=== PATIENT | female | born 1985 | race Caucasian/White ===

== ENCOUNTER 2018-06-19 03:05 | Inpatient (IN) | payer OTHER ==
[2018-06-19 03:38] VITALS: BMI 26.1
[2018-06-19] MEDS ORDERED: Lidocaine 1% (PF) 30 ML VIAL SC PRN (04:55)
[2018-06-19] MEDS ORDERED: NS / Oxytocin 40 units/1000ml 1,000 ML IV PRN (04:55)
[2018-06-19] MEDS ORDERED: Methylergonovine 0.2 MG/ML VIAL IM PRN (04:55)
[2018-06-19] MEDS ORDERED: Ibuprofen 800 MG TAB PO PRN (04:55)
[2018-06-19] MEDS ORDERED: Acetaminophen 500 MG TAB PO PRN (04:55)
[2018-06-19] MEDS ORDERED: Diphenoxylate HCl/Atropine Tablet PO PRN ×2 (04:55)
[2018-06-19] MEDS ORDERED: HYDROcodone/Acetaminophen 5/325 mg Tablet PO PRN ×2 (04:55)
[2018-06-19] MEDS ORDERED: Misoprostol 200 MCG TAB PR PRN (04:55)
[2018-06-19] MEDS ORDERED: Promethazine HCl 25 MG/ML VIAL IM PRN ×2 (04:55→21:03)
[2018-06-19] MEDS ORDERED: Carboprost 250 MCG/ML AMP IM PRN (04:55)
[2018-06-19 07:00] LABS: Hemoglobin 12.5 g/dL (12.0-16.0); Mean Corpuscular HGB CONC 33.6 g/dL (32.0-36.0); Mean Corpuscular Hemoglobin 28.7 pg (27.0-31.0); Mean Corpuscular Volume 85.5 fL (78.0-98.0); Platelet Count 168 thou/uL (130-400); RBC Distribution Width 12.7 % (11.5-14.5); Red Blood Cell (RBC) Count 4.37 mill/uL (4.20-5.40); White Blood Cell (WBC) Count 6.9 thou/uL (4.8-10.8)
[2018-06-19 07:47] LABS: HBSAg Index 0.18 S/CO (0-0.99); Hep B Surf Ag Non-Reactive S/CO (NonReactive); Syphilis Antibody Nonreactive (Nonreactive); Syphilis Antibody Index 0.05 S/CO (<1.00 Non-Reactive)
[2018-06-19] MEDS: NS w/ Oxytocin 10 units 500 ML IV SCH (07:47)
[2018-06-19] MEDS: Lactated Ringer's 1,000 ML IV SCH ×2 (07:48→13:22)
--- NOTE | 2018-06-19 15:26 | PDOC.EVN ---
Event Note - Event Note Event Note: Came to L&D to assess pt in labor. No change since this AM despite good contraction pattern. SVE . Cook's balloon placed without incident. No complications. FWB category I. Continue pitocin. Plan AROM when balloon out.
[2018-06-19] MEDS: Butorphanol Tartrate 1 MG/ML VIAL SLOW IVP PRN ×2 (18:43→19:39)
[2018-06-19] MEDS ORDERED: Butorphanol Tartrate 1 MG/ML VIAL ONE (19:34)
[2018-06-19] MEDS ORDERED: Fentanyl 4 mcg/Bup 0.1% Cadd 100 ML ONE (19:35)
[2018-06-19] MEDS ORDERED: Lidocaine 1% PF 5 ML VIAL ONE (19:58)
[2018-06-19] MEDS ORDERED: Lidocaine 1.5%/Epinephrine 1:200,000 5 ML AMPUL IJ ONE (19:58)
[2018-06-19] MEDS ORDERED: Lidocaine 2% 10 ML INJ ONE (19:58)
[2018-06-19] MEDS ORDERED: Acetaminophen 325 MG TAB PO PRN (21:03)
[2018-06-19] MEDS ORDERED: Ondansetron PF 4 MG/2 ML Vial IVP PRN (21:03)
[2018-06-19] MEDS ORDERED: Naloxone HCl 0.4 mg/ml Vial IVP PRN ×2 (21:03)
[2018-06-19] MEDS ORDERED: diphenhydrAMINE 50 MG/ML VIAL IVP PRN (21:03)
[2018-06-19] MEDS ORDERED: Eucerin (Mineral Oil/Petrolatum,White) 30 gm Jar TOP PRN (21:03)
[2018-06-19] MEDS ORDERED: ePHEDrine/0.9% NaCl/PF SYRINGE 50 mg/10 ml SLOW IVP PRN (21:03)
[2018-06-19] MEDS ORDERED: Lactated Ringer's 500 ML IV PRN (21:03)
[2018-06-19] MEDS ORDERED: Communication Order-Pharmacy FS SCH (21:15)
[2018-06-19] MEDS ORDERED: Fentanyl 4 mcg/Bupivacaine 0.1% Cassette 100 ML EPIDURAL SCH (21:15)
[2018-06-20] MEDS: Lactated Ringer's 1,000 ML IV SCH ×5 (00:31→21:36)
[2018-06-20] MEDS ORDERED: Fentanyl 4 mcg/Bup 0.1% Cadd 100 ML ONE ×5 (03:25→19:23)
[2018-06-20] MEDS: Ondansetron PF 4 MG/2 ML Vial IVP PRN ×2 (07:58→18:11)
--- NOTE | 2018-06-20 08:13 | PDOC.EVN ---
Event Note - Event Note Event Note: Came to bedside to check patient. Balloon out as of 6am today. SVE at that time was 4/-1. SVE now 5-/-1. AROM with clear fluid. IUPC placed without incident. FWB category I.
[2018-06-20] MEDS: NS w/ Oxytocin 10 units 500 ML IV SCH (12:05)
[2018-06-20] MEDS ORDERED: Fentanyl 100 MCG/2 ML VIAL ONE ×3 (19:38→23:45)
[2018-06-20] MEDS ORDERED: Acetaminophen 1,000 MG in Premix Bag 1 BAG IVPB SCH (19:45)
[2018-06-20] MEDS: Ampicillin/Sulbactam 3 GM in Sodium Chloride 0.9% 100 ML IVPB SCH (20:26)
--- NOTE | 2018-06-20 21:45 | PDOC.EVN ---
Event Note - Event Note Event Note: Came to assess patient. Developed fever about 2 hours ago. Given ofirmev 1g IV and started on unasyn. Baby became tachycardic at that time with decreased variability but still good response to scalp stimulation. SVE now is 8/100/+1. MVU 215 in the last 10 minutes, really only adequate contractions for the last hour or so. Discussed with pt options for delivery given prolonged labor, very slow progress, fever, tachycardia. We will wait one more hour of adequate uterine contractions and if no change then move forward with section. D/W Dr. Apodaca at the time of this note.
[2018-06-20] MEDS ORDERED: CEFAZOLIN 2 GM/50 ML BAG ONE (22:34)
--- NOTE | 2018-06-20 22:41 | PDOC.EVN ---
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 I have been requested to participate in the patient's care by CSection due to dysfunctional labor at 8cm (not responsive pattern) and maternal suspeceted IAI on ABX. I have discussed primary Csection with the patient. To OR
[2018-06-20] MEDS ORDERED: Oxytocin 10 UNITS/ML VIAL ONE (22:48)
[2018-06-20] MEDS ORDERED: Ondansetron PF 4 MG/2 ML Vial ONE (22:48)
[2018-06-20] MEDS ORDERED: Lidocaine 2% 10 ML INJ ONE ×2 (22:48→23:44)
[2018-06-20] MEDS ORDERED: Morphine PF 1 MG/ML SYR ONE (22:49)
[2018-06-20] MEDS ORDERED: Clindamycin/D5W 900 mg/50 ml Premix Bag ONE (23:15)
[2018-06-20] MEDS ORDERED: Carboprost 250 MCG/ML AMP ONE (23:28)
[2018-06-20] MEDS ORDERED: Lidocaine 1.5% w/Epi 1:200K 30 ML VIAL (Epid Use) ONE (23:44)
[2018-06-20] MEDS ORDERED: Ketorolac Tromethamine 30 MG/ML VIAL IVP SCH (23:45)
[2018-06-20] MEDS ORDERED: Communication Order-Pharmacy FS SCH (23:45)
[2018-06-20] MEDS ORDERED: Promethazine HCl 25 MG/ML VIAL IM PRN (23:53)
[2018-06-20] MEDS ORDERED: Ondansetron PF 4 MG/2 ML Vial IVP PRN (23:53)
[2018-06-20] MEDS ORDERED: diphenhydrAMINE 50 MG/ML VIAL IVP PRN (23:53)
[2018-06-20] MEDS ORDERED: Promethazine HCl 25 MG SUPP PR PRN (23:53)
[2018-06-20] MEDS ORDERED: Ketorolac Tromethamine 30 MG/ML VIAL IVP PRN (23:53)
[2018-06-20] MEDS ORDERED: Eucerin (Mineral Oil/Petrolatum,White) 30 gm Jar TOP PRN (23:53)
[2018-06-20] MEDS ORDERED: Naloxone HCl 0.4 mg/ml Vial IVP PRN ×2 (23:53)
[2018-06-20] MEDS ORDERED: Naloxone HCl 0.4 mg/ml Vial IV PRN (23:53)
[2018-06-20] MEDS ORDERED: L&D-Morphine 4 MG/ML VIAL SLOW IVP PRN (23:54)
[2018-06-20] MEDS ORDERED: HYDROmorphone 2 MG/ML VIAL SLOW IVP PRN (23:54)
[2018-06-20] MEDS ORDERED: Ondansetron HCl/PF 4 MG/2 ML Vial IVP PRN (23:54)
[2018-06-20] MEDS ORDERED: Meperidine HCl/PF 25 MG/ML VIAL SLOW IVP PRN (23:54)
[2018-06-20] MEDS ORDERED: Ketorolac Tromethamine 30 MG/ML VIAL ONE (23:54)
--- NOTE | 2018-06-21 00:07 | PDOC.EVN ---
Event Note - Event Note Event Note: Op note Primary LTCS performed via pfannesntiel. Paulie/Tony EBL 600; QBL pending See full op note dictation
--- NOTE | 2018-06-21 00:35 | OP ---
DATE OF PROCEDURE: 06/20/2018 PRINCIPAL DIAGNOSES: 1. Dysfunctional labor at 8 cm. 2. Nonresponsive contraction pattern. 3. Suspected intraamniotic infection. POSTOPERATIVE DIAGNOSES: 1. Dysfunctional labor at 8 cm. 2. Status post primary section. PROCEDURES PERFORMED: Primary low transverse section via Pfannenstiel skin incision. OAK TANNER: Dr. Wilder Jimenez. ANESTHESIA: Labor epidural and local anesthesia (lidocaine topical at the time of fascial closure). ANTIBIOTICS: Ancef given intrapartum and clindamycin 900 mg given intraoperatively. FINDINGS: 1. Baby is in a cephalic presentation with no nuchal cord. 2. Apgars were 8 and 9. 3. Baby is a vigorous male. 4. NICU present for delivery. 5. Hysterotomy closure with hemostasis. 6. Normal adnexa. 7. The amniotic fluid was slightly purulent at entry into the uterine cavity and hysterotomy. ESTIMATED BLOOD LOSS: About 600 mL, but the QBL is pending. COMPLICATIONS: None. COUNTS: Correct. PATHOLOGY: Clear urine by Soto (please see anesthesia record). IV FLUIDS: Crystalloid (please see anesthesia record). COMPLICATIONS: None. COUNTS: Correct. PATHOLOGY SPECIMEN: Placenta. DISPOSITION: To recovery room in good and stable condition. INDICATIONS FOR DELIVERY: I was contacted by Dr. Jimenez regarding this patient's care. Please see my preop note in the EMR. The plan was made to proceed with a section due to dysfunctional labor despite use of Pitocin. Cervical exam was 8 cm. TECHNIQUE: After proper informed consent was explained to the patient, she was transported to the labor and delivery operating room, where she was placed in a supine position and the epidural was adequately dosed. The patient's abdomen was prepped and draped in the usual sterile fashion. A Pfannenstiel skin incision was made after the skin was tested. This was approximately 2 fingerbreadths above the pubic symphysis. Bovie cautery on cut mode was used to dissect the subcutaneous tissue down to the level of the fascia. The fascia was identified, cleaned off any overlying fat, and entered using Bovie cautery on cut mode along with Littlejohn scissors for fascial entry. The rectus muscles were off the fascia both superiorly and inferiorly off the midline with Littlejohn scissors. The rectus muscles were out from the midline. Underlying peritoneum was entered by blunt dissection. An Oleg O-ring retractor was placed into the wound for circumferential retraction. Hysterotomy was performed without bladder flap creation. Baby was in a cephalic presentation and the baby was delivered without incident. The body was delivered and delayed cord clamping for [address] After 30 seconds, the cord was doubly clamped and transected. The baby was handed to the NICU team present for delivery. The placenta was gently massaged out of the uterine cavity and it was intact. It was sent to Pathology for suspected intra-amniotic infection. A dry laparotomy sponge was used to curettage the uterine cavity signifying lack of any retained products. The uterus was repaired in situ and the hysterotomy was closed with 0 Monocryl in a running locking fashion. Its second layer was used for hysterotomy closure, so the uterus was closed in two layers. After confirming hemostasis, copious irrigation was done of the abdominal pelvic cavity and the O-ring retractor was removed. Copious irrigation was again performed. Rectus muscles were reapproximated in the midline using a mattress suture of 2-0 chromic suture. After confirming hemostasis underneath the fascial edge, fascia was closed with 0 PDS and 1 running nonlocking suture. The subcutaneous tissue was copiously irrigated, and the subcutaneous tissue was closed with 2-0 chromic as it was more than 2 cm thick. Subcutaneous tissue was closed with 3-0 Monocryl in a subcuticular closure. Dermabond was placed as a liquid adhesive and as a liquid barrier/bandage. The patient complained of some discomfort as we approached the end of the fascial closure. At this time, we placed 20 mL of 1% lidocaine without epinephrine directly into the wound as a topical therapy. This was done by pour instillation into the area. This helped with the patient's discomfort. The patient will be transported to Recovery for routine care. Job ID: [id number]
[2018-06-21] MEDS ORDERED: Lanolin Ointment 7 GM TUBE TOP PRN (01:44)
[2018-06-21] MEDS ORDERED: HYDROcodone/Acetaminophen 5/325 mg Tablet PO PRN (01:44)
[2018-06-21] MEDS: Ampicillin/Sulbactam 3 GM in Sodium Chloride 0.9% 100 ML IVPB SCH ×4 (01:55→22:25)
[2018-06-21] MEDS: Lactated Ringer's 1,000 ML IV SCH (03:32)
[2018-06-21] MEDS ORDERED: Ketorolac Tromethamine 30 MG/ML VIAL ONE (05:42)
[2018-06-21] MEDS: Clindamycin/D5W 600 MG in Premix Bag 1 BAG IVPB SCH ×3 (05:44→18:20)
[2018-06-21 08:41] LABS: Mean Corpuscular HGB CONC 33.4 g/dL (32.0-36.0); Mean Corpuscular Hemoglobin 29.2 pg (27.0-31.0); Mean Corpuscular Volume 87.3 fL (78.0-98.0); Mean Platelet Volume 10.3 fL (7.4-10.4); Platelet Count 120 thou/uL (130-400); RBC Distribution Width 12.9 % (11.5-14.5); Red Blood Cell (RBC) Count 3.42 mill/uL (4.20-5.40); White Blood Cell (WBC) Count 15.1 thou/uL (4.8-10.8)
[2018-06-21] MEDS ORDERED: Bupivacaine 0.25% 10 ML VIAL ONE (11:11)
[2018-06-21] MEDS ORDERED: Bupivacaine 0.25% HCL 30 ML VIAL ONE (11:11)
[2018-06-21] MEDS: Ibuprofen 800 MG TAB PO SCH ×3 (11:31→22:29)
[2018-06-21] MEDS ORDERED: Sodium Chloride 0.9% 10 ML ONE ×3 (15:52→20:41)
[2018-06-21] MEDS: Simethicone Chewable 80 MG TAB PO PRN (16:05)
[2018-06-22] MEDS: Clindamycin/D5W 600 MG in Premix Bag 1 BAG IVPB SCH ×2 (00:58→06:11)
[2018-06-22] MEDS: Simethicone Chewable 80 MG TAB PO PRN ×3 (01:02→22:11)
[2018-06-22] MEDS: HYDROcodone/Acetaminophen 5/325 mg Tablet PO PRN ×2 (04:19→14:31)
[2018-06-22] MEDS: Ampicillin/Sulbactam 3 GM in Sodium Chloride 0.9% 100 ML IVPB SCH ×2 (04:21→10:29)
[2018-06-22] MEDS: Ibuprofen 800 MG TAB PO SCH ×2 (06:12→21:56)
--- NOTE | 2018-06-22 11:54 | PDOC.PP ---
Post Progress Note Post Day #: 2 Subjective: No c/o. Pain controlled. . PO intake tolerated: yes Flatus: yes Ambulation: yes Vital Signs (12 hours) Temp Pulse Resp BP Pulse Ox 06/22/18 08:17 98.4 F 87 20 132/79 95 06/22/18 04:21 98.2 F 87 18 129/69 06/22/18 00:55 98.4 F 92 18 128/60 Weight Weight 152 lb - Physical Examination General: NAD Cardiovascular: no m/r/g, RRR Respiratory: clear to auscultation bilaterally, non-labored breathing Abdominal: + bowel sounds, lochia, no distention, appropriately TTP Skin: CS incision dry & intact Result Diagrams: 06/21/18 07:55 Additional Labs: Post Labs Blood Type A NEGATIVE 06/19/18 06:48 Hep Bs Antigen Non-Reactive S/CO (NonReactive) 06/19/18 06:48 (1) Chorioamnionitis, delivered, current hospitalization Code(s): O41.1290 - CHORIOAMNIONITIS, UNSP TRIMESTER, NOT APPLICABLE OR UNSP Status: Acute (2) Delivery by section of full-term infant Code(s): O82 - ENCOUNTER FOR DELIVERY WITHOUT INDICATION Status: Acute - Assessment/Plan Can D/C abx for chorio - afebrile for 24 hours now Routine Postop care
[2018-06-22] MEDS ORDERED: Furosemide 20 MG TAB PO SCH (21:15)
[2018-06-23] MEDS: Ibuprofen 800 MG TAB PO SCH ×4 (06:11→22:20)
[2018-06-23] MEDS ORDERED: Furosemide 20 MG TAB PO SCH (08:00)
--- NOTE | 2018-06-23 08:01 | PDOC.PP ---
Post Progress Note Post Day #: 2 Subjective: Had some fluid overload overnight, got 11 liters of IV fluids in labor, had some swelling in feet, legs, buttocks and abdomen as well as labial edema. BP crept up as well. Gave 1 dose of lasix with 2000ml of UOP and improvement in BP. Still with some edema this AM. PO intake tolerated: yes Flatus: yes Ambulation: yes Vital Signs (12 hours) Temp Pulse Resp BP BP Pulse Ox 06/23/18 06:10 143/81 H 06/23/18 01:10 134/73 06/22/18 20:35 98.3 F 89 20 161/97 H 96 Weight Weight 152 lb - Physical Examination General: NAD Cardiovascular: no m/r/g, RRR Respiratory: clear to auscultation bilaterally, non-labored breathing Abdominal: + bowel sounds, lochia, no distention, appropriately TTP Deviation from normal: 1+ edema in feet up to mid-paul Skin: CS incision dry & intact Result Diagrams: 06/21/18 07:55 Additional Labs: Post Labs Blood Type A NEGATIVE 06/19/18 06:48 Hep Bs Antigen Non-Reactive S/CO (NonReactive) 06/19/18 06:48 (1) Chorioamnionitis, delivered, current hospitalization Code(s): O41.1290 - CHORIOAMNIONITIS, UNSP TRIMESTER, NOT APPLICABLE OR UNSP Status: Acute (2) Delivery by section of full-term Code(s): O82 - ENCOUNTER FOR DELIVERY WITHOUT INDICATION Status: Acute - Assessment/Plan Routine post op care Repeat lasix dose this AM for continued edema - I am treating this as if it is simply volume overload from so much IV fluid in labor, though preeclampsia remains a possibility. Will watch closely today after fluid balance back to normal and if BP remains stable may be able to go home later this PM.
[2018-06-23] MEDS: Clindamycin/D5W 600 MG in Premix Bag 1 BAG IVPB SCH (10:03)
[2018-06-23] MEDS: Simethicone Chewable 80 MG TAB PO PRN ×2 (15:32→22:20)
[2018-06-23 17:31] LABS: #Eosinphils 0.1 thou/uL (0.0-0.7); #Lymphocytes 1.1 thou/uL (1.20-3.40); #Monocytes 0.4 thou/uL (0.11-0.59); #Neutrophils 7.2 thou/uL (1.40-6.50); %Basophils 0.3 % (0.0-1.0); %Eosinophils 1.3 % (0.0-10.0); %Lymphocytes 12.2 % (21.0-51.0); %Monocytes 4.5 % (0.0-10.0); %Neutrophils 81.7 % (42.0-75.0); Hemoglobin 10.1 g/dL (12.0-16.0); Mean Corpuscular HGB CONC 32.8 g/dL (32.0-36.0); Mean Corpuscular Hemoglobin 28.1 pg (27.0-31.0); Mean Corpuscular Volume 85.7 fL (78.0-98.0); Mean Platelet Volume 8.6 fL (7.4-10.4); Platelet Count 225 thou/uL (130-400); White Blood Cell (WBC) Count 8.9 thou/uL (4.8-10.8)
[2018-06-23 17:50] LABS: ALT (SGPT) 39 U/L (8-55); AST (SGOT) 50 U/L (5-34); Alkaline Phosphatase 142 U/L (40-150); Anion Gap 14 mmol/L (10-20); BUN (Urea Nitrogen) 8 mg/dL (7.0-18.7); Bilirubin, Total 0.2 mg/dL (0.2-1.2); Calc. Creatinine Clearance 129 mL/min (70-130); Calcium 9.2 mg/dL (7.8-10.44); Carbon Dioxide 26 mmol/L (22-29); Chloride 104 mmol/L (98-107); Estimated GFR-MDRD Greater than 90; Globulin 3.4 g/dL (2.4-3.5); Glucose 126 mg/dL (70-105); Potassium 3.5 mmol/L (3.5-5.1); Protein, Total 6.4 g/dL (6.0-8.3); Sodium 140 mmol/L (136-145)
[2018-06-24] MEDS: Ibuprofen 800 MG TAB PO SCH (06:17)
[2018-06-24] MEDS: Simethicone Chewable 80 MG TAB PO PRN (06:17)
--- NOTE | 2018-06-24 07:38 | PDOC.PP ---
Post Progress Note Post Day #: 3 Subjective: Still with some edema, better now than yesterday though. Pain controlled. Wants to go home today. PO intake tolerated: yes Flatus: yes Ambulation: yes Vital Signs (12 hours) Temp Pulse Resp BP BP Pulse Ox 06/24/18 06:15 100 135/95 H 06/24/18 03:55 76 141/78 H 06/24/18 00:00 78 155/88 H 06/23/18 20:50 97 06/23/18 20:20 98.6 F 78 20 140/95 H 97 Weight Weight 152 lb - Physical Examination General: NAD Cardiovascular: no m/r/g, RRR Respiratory: clear to auscultation bilaterally, non-labored breathing Abdominal: + bowel sounds, lochia, no distention, appropriately TTP Skin: CS incision dry & intact Result Diagrams: 06/23/18 17:22 06/23/18 17:22 Additional Labs: Post Labs Blood Type A NEGATIVE 06/19/18 06:48 Hep Bs Antigen Non-Reactive S/CO (NonReactive) 06/19/18 06:48 (1) Chorioamnionitis, delivered, current hospitalization Code(s): O41.1290 - CHORIOAMNIONITIS, UNSP TRIMESTER, NOT APPLICABLE OR UNSP Status: Acute (2) Delivery by section of full-term infant Code(s): O82 - ENCOUNTER FOR DELIVERY WITHOUT INDICATION Status: Acute - Assessment/Plan Edema improving but not yet resolved. labs normal yesterday. Will give another dose of lasix this Am and observe for a few hours. If BP better and diuresis continues then plan D/C later today. F/U in 2 weeks with me. otherwise routine post-op course and care.
[2018-06-24] MEDS ORDERED: Furosemide 20 MG TAB PO SCH (07:45)
[2018-06-24 09:39] VITALS: TEMP 98.7
[2018-06-24 12:33] VITALS: BP 154/79
== END 2018-06-24 12:55 | disposition home or self-care (01) | DRG 788 ==
LOC: L&D/OP 03:05 → L&D 06:18 → 3SW 06-21 15:14
PROVIDERS: ADMIT Family Medicine; ATTEND Family Medicine
PROC: 10907ZC Drainage of Amniotic Fluid, Therapeutic from Products of Conception, Via Natural or Artificial Opening (ICD-10-PCS; principal; 2018-06-21)
PROC: 10D00Z1 Extraction of Products of Conception, Low, Open Approach (ICD-10-PCS; 2018-06-21)
PROC: 3E033VJ Introduction of Other Hormone into Peripheral Vein, Percutaneous Approach (ICD-10-PCS; 2018-06-21)
DX: O41.1230 Chorioamnionitis, third trimester, not applicable or unspecified (principal); Z3A.40 40 weeks gestation of pregnancy; Z37.0 Single live birth; O48.0 Post-term pregnancy; O62.1 Secondary uterine inertia; O76 Abnormality in fetal heart rate and rhythm complicating labor and delivery
CPT/HCPCS: 36415; 36416; 51702; 80053; 85025; 85027; 85461; 86780; 86850; 86900; 86901; 87340; 88307; 90384; 96372; 99285; C1726; J0131; J0295; J0595; J1885; J2001; J2274; J2405; J2590; J3010; J3490; J7050; S0020

== ENCOUNTER 2022-02-18 10:35 | Outpatient (CLI) | payer BC | END 2022-02-18 10:36 | disposition home or self-care (01) | LOC: RAD 10:35 | PROVIDERS: ATTEND Family Medicine | DX: M54.2 Cervicalgia (principal) | CPT/HCPCS: 72052 ==